=== PATIENT | female | born 1975 | race Caucasian/White ===

== ENCOUNTER 2022-01-13 08:44 | Emergency (ER) | payer MEDICAID ==
[~2022-01-13] VITALS: Ht 147.3 cm; Wt 72.0 kg
[2022-01-13 08:52] VITALS: BP 139/94
[2022-01-13] MEDS ORDERED: METHOCARBAMOL 500MG TABLET PO SCH (09:15)
[2022-01-13] MEDS ORDERED: ACETAMINOPHEN 325MG TABLET PO SCH (09:15)
[2022-01-13] MEDS ORDERED: TOPUD MT (10:17)
[2022-01-13] MEDS ORDERED: METH-653 MT (10:17)
== END 2022-01-13 10:52 | disposition home or self-care (01) ==
LOC: ER 08:44
DX: M54.50 Low back pain, unspecified (principal); Z98.890 Other specified postprocedural states; W01.0XXA Fall on same level from slipping, tripping and stumbling without subsequent striking against object, initial encounter; Y93.89 Activity, other specified; Y92.018 Other place in single-family (private) house as the place of occurrence of the external cause
CPT/HCPCS: 72170; 81025; 99283